=== PATIENT | male | born 1965 ===

== ENCOUNTER 2021-06-01 21:13 | Emergency (ER) | payer SELFPAY ==
[~2021-06-01] VITALS: Ht 190.5 cm; Wt 82.0 kg
[2021-06-01] MEDS ORDERED: LIDOCAINE HCL 1% 20ML VIAL (Pyxis) INJ INFIL ONE (22:00)
[2021-06-01] MEDS ORDERED: CEFTRIAXONE SODIUM 1 G/VIAL IM ONE (22:00)
[2021-06-01] MEDS ORDERED: CEPH500C2 MT (22:55)
[2021-06-01] MEDS ORDERED: DOXY100C5 MT (22:55)
[2021-06-01 23:26] VITALS: BP 128/82
== END 2021-06-01 23:27 | disposition home or self-care (01) ==
LOC: ER 21:13
DX: S00.262A Insect bite (nonvenomous) of left eyelid and periocular area, initial encounter (principal); L02.01 Cutaneous abscess of face; W57.XXXA Bitten or stung by nonvenomous insect and other nonvenomous arthropods, initial encounter; Y93.89 Activity, other specified; Y92.89 Other specified places as the place of occurrence of the external cause
CPT/HCPCS: 96372; 99283; J0696; J3490